=== PATIENT | female | born 1995 | race Caucasian/White ===

== ENCOUNTER 2019-06-21 01:52 | Emergency (ER) | payer BC ==
[~2019-06-21] VITALS: Ht 154.9 cm; Wt 6356.2 kg
[~2019-06-21 01:52] MED LIST: HUMALOG100 UNIT/1 SUB-Q; VENTOLIN HFA18 GM INH
== END 2019-06-21 03:58 | disposition home or self-care (01) ==
LOC: ED 01:52
DX: F10.129 Alcohol abuse with intoxication, unspecified (principal); Y90.6 Blood alcohol level of 120-199 mg/100 ml; Z88.8 Allergy status to other drugs, medicaments and biological substances; Z88.0 Allergy status to penicillin
CPT/HCPCS: 80053; 82010; 82800; 85025; 96374; 99284-25; G0480; J2405; J7030

== ENCOUNTER 2021-05-27 17:51 | Emergency (ER) | payer OTHER ==
[~2021-05-27] VITALS: Ht 157.5 cm; Wt 62.3 kg
[2021-05-27] MEDS ORDERED: INSULIN AS100 UNIT/2 SUB-Q (21:11)
== END 2021-05-27 23:13 | disposition home or self-care (01) ==
LOC: ED 17:51
DX: E87.5 Hyperkalemia (principal); E11.9 Type 2 diabetes mellitus without complications; Z88.0 Allergy status to penicillin; Z88.6 Allergy status to analgesic agent; Z88.8 Allergy status to other drugs, medicaments and biological substances; Z79.4 Long term (current) use of insulin
CPT/HCPCS: 80053; 99284

== ENCOUNTER 2022-04-02 17:33 | Emergency (ER) | payer OTHER ==
[~2022-04-02] VITALS: Ht 157.5 cm; Wt 62.3 kg
[~2022-04-02 17:33] MED LIST changes: +INSULIN AS100 UNIT/2 SUB-Q
[2022-04-02] MEDS ORDERED: BASAGLAR K100 UNIT/1 SUB-Q (19:02)
[2022-04-02] MEDS ORDERED: CIPROFLOX-DEXA7.5 ML (19:02)
== END 2022-04-02 20:35 | disposition home or self-care (01) ==
LOC: ED 17:33
DX: A41.9 Sepsis, unspecified organism (principal); E11.9 Type 2 diabetes mellitus without complications; Z88.0 Allergy status to penicillin; Z88.8 Allergy status to other drugs, medicaments and biological substances; Z79.899 Other long term (current) drug therapy; Z79.4 Long term (current) use of insulin; Z20.822 Contact with and (suspected) exposure to COVID-19
CPT/HCPCS: 36415; 71045; 74177; 80053; 81001; 83605; 84703; 85025; 87502; 96375; 99285-25; C9803; J0696; J2405; J7030; Q9967; U0003